=== PATIENT | female | born 1930 | race Caucasian/White ===

== ENCOUNTER 2017-12-21 11:38 | Inpatient (IN) | payer MEDICARE, BC ==
[~2017-12-21] VITALS: Ht 157.5 cm; Wt 68.0 kg
--- NOTE | 2017-12-21 11:47 | NUR ---
BIB paramedics IV access G18 to LAC. patent. pt. placed on 2 liters nasal canula saturation on RA 94%.. AAOX4.
[2017-12-21] MEDS ORDERED: IPRATROPIUM BROMIDE 0.5 MG/2.5 ML NEBU NEB ONE ×2 (12:00→13:45)
[2017-12-21] MEDS ORDERED: methylPREDNISolone SOD SUCC 125 MG/2 ML VIAL IV ONE (12:00)
[2017-12-21] MEDS ORDERED: ALBUTEROL SULFATE 2.5 MG/3 ML NEBU NEB ONE ×2 (12:00→13:45)
--- NOTE | 2017-12-21 12:00 | NUR ---
Dr. Cardenas at bedside to see and examine patient.
[2017-12-21] MEDS ORDERED: IPRATROPIUM BROMIDE 0.5 MG/2.5 ML NEBU ONE ×2 (12:08→13:43)
[2017-12-21] MEDS ORDERED: ALBUTEROL SULFATE 2.5 MG/ 0.5 ML NEBU ONE (12:08)
[2017-12-21] MEDS ORDERED: methylPREDNISolone SOD SUCC 125 MG/2 ML VIAL ONE (12:08)
[2017-12-21 12:19] LABS: BASOPHILS # (AUTO) 0.1 K/uL (0.0-8.0); BASOPHILS % (AUTO) 0.5 % (0.0-2.0); EOSINOPHILS # (AUTO) 0.7 K/uL (0.0-0.7); EOSINOPHILS % (AUTO) 5.2 % (0.0-7.0); HEMATOCRIT 43.1 % (31.2-41.9); HEMOGLOBIN 14.5 g/dL (10.9-14.3); LYMPHOCYTES % (AUTO) 14.4 % (20.5-51.5); MEAN CORPUSCULAR HEMOGLOBIN 30.3 uug (24.7-32.8); MEAN CORPUSCULAR HGB CONC 34 g/dL (32.3-35.6); MEAN CORPUSCULAR VOLUME 89.8 fL (75.5-95.3); MONOCYTES # (AUTO) 0.9 K/uL (2.0-10.0); MONOCYTES % (AUTO) 6.8 % (0.0-11.0); NEUTROPHILS # (AUTO) 10.1 K/uL (1.8-8.9); NEUTROPHILS % (AUTO) 73.1 % (38.5-71.5); PLATELET COUNT (AUTO) 262 K/uL (179-408); WHITE BLOOD COUNT (AUTO) 13.9 K/uL (3.8-11.8)
[2017-12-21] MEDS ORDERED: SINGULAIR PO (12:30)
[2017-12-21] MEDS ORDERED: BREO INHALER (12:30)
[2017-12-21] MEDS ORDERED: LEVO100T PO (12:30)
[2017-12-21] MEDS ORDERED: VALS320T2 PO (12:30)
[2017-12-21] MEDS ORDERED: ASPI81TA31 PO (12:30)
[2017-12-21] MEDS ORDERED: CHOL100045 PO (12:30)
[2017-12-21] MEDS ORDERED: ALBU8HFA4 (12:30)
[2017-12-21] MEDS ORDERED: GABA400C PO (12:30)
[2017-12-21] MEDS ORDERED: MEMA14CA PO (12:30)
[2017-12-21] MEDS ORDERED: CYAN10009 PO (12:30)
[2017-12-21] MEDS ORDERED: CALC600T12 PO (12:30)
[2017-12-21] MEDS ORDERED: B2/V1TAB PO (12:30)
[2017-12-21] MEDS ORDERED: INSU300I SQ (12:30)
[2017-12-21] MEDS ORDERED: SIMV10TA2 PO (12:30)
[2017-12-21] MEDS ORDERED: TRAM-351 PO (12:30)
[2017-12-21] MEDS ORDERED: FURO-152 PO (12:30)
[2017-12-21] MEDS ORDERED: INSU12CA IH (12:30)
[2017-12-21] MEDS ORDERED: POTA20TA10 PO (12:30)
[2017-12-21] MEDS ORDERED: AMLO10TA4 PO (12:30)
[2017-12-21 12:32] LABS: CARBON DIOXIDE 27 mmol/L (21-32); CHLORIDE 104 mmol/L (98-107); CREATININE 1.4 mg/dL (0.6-1.3); GLUCOSE 59 mg/dL (74-106); POTASSIUM 3.2 mmol/L (3.5-5.1); UREA NITROGEN, BLOOD 28 mg/dL (7-18)
[2017-12-21 12:49] LABS: ALANINE AMINOTRANSFERASE 23 U/L (14-59); ALKALINE PHOSPHATASE 88 U/L (50-136); ASPARTATE AMINOTRANSFERASE 22 U/L (15-37); BILIRUBIN,DIRECT 0.1 mg/dL (0.0-0.2); BILIRUBIN,TOTAL 0.2 mg/dL (0.2-1.0); TOTAL PROTEIN, SERUM 7.8 g/dL (6.4-8.2)
--- NOTE | 2017-12-21 13:12 | NUR ---
A call to [facility] as requested by Md. Davis.
--- NOTE | 2017-12-21 13:22 | NUR ---
Call for 2nd floor for a bed room 209 assigned report to give to Debbi Capone.
--- NOTE | 2017-12-21 13:23 | NUR ---
hr, of 77, 95% on 2L NC, sbp 141/60. Family at bedside.
--- NOTE | 2017-12-21 13:37 | NUR ---
A call for report. Addendum: 12/21/17 at 1338 by ROBERTO Denisse ellington will call back when available.
[2017-12-21] MEDS ORDERED: ALBUTEROL SULFATE 2.5 MG/3 ML NEBU ONE (13:43)
[2017-12-21] MEDS ORDERED: IPRATROPIUM BROMIDE 0.5 MG/2.5 ML NEBU NEB PRN (13:45)
[2017-12-21] MEDS ORDERED: ONDANSETRON 4 MG/2 ML VIAL IV PRN (13:45)
[2017-12-21] MEDS ORDERED: POTASSIUM CHLORIDE 20 MEQ TAB.PRT.SR PO ONE (13:45)
[2017-12-21] MEDS ORDERED: ALBUTEROL SULFATE 2.5 MG/3 ML NEBU NEB PRN (13:45)
[2017-12-21] MEDS ORDERED: IV NS 1000 ML 1,000 ML IV PRN (13:45)
[2017-12-21] MEDS ORDERED: POTASSIUM CHLORIDE 20 MEQ TAB.PRT.SR ONE (13:49)
--- NOTE | 2017-12-21 13:51 | NUR ---
Breathing tx in progress. pt. partially ate lunch.
--- NOTE | 2017-12-21 14:02 | NUR ---
Pt. still in room 1B been assessed by Asher Carey.
--- NOTE | 2017-12-21 14:10 | NUR ---
PT ARRIVED ON THE UNIT VIA GURNEY. PT WALKED FROM GURNEY TO BED, STEADY GATE, NO SIGNS OF DISTRESS. AOX4, COOPERATIVE, AND IN NO RESPIRATORY DISTRESS. PT IV IS PATENT AND INTACT. PT PLACED ON 2L NC SAT 94-96%. CONTINUE TO MONITOR PT.
[2017-12-21 14:25] VITALS: BP 176/71
[2017-12-21] MEDS: methylPREDNISolone SOD SUCC 40 MG/ML VIAL IV SCH ×2 (14:51→21:06)
[2017-12-21] MEDS ORDERED: DEXTROSE 50% 50 ML DISP.SYRIN IV PRN (15:00)
[2017-12-21 15:08] VITALS: BP 150/73
[2017-12-21] MEDS ORDERED: CLONIDINE HCL 0.1 MG TABLET PO PRN (16:00)
[2017-12-21] MEDS: LEVOFLOXACIN 250MG /D5W 250 MG in PREMIXED 1 EACH IV SCH (16:05)
[2017-12-21] MEDS: IPRATROPIUM BROMIDE 0.5 MG/2.5 ML NEBU NEB SCH ×3 (16:20→23:26)
[2017-12-21] MEDS: ALBUTEROL SULFATE 2.5 MG/3 ML NEBU NEB SCH ×3 (16:20→23:26)
[2017-12-21] MEDS ORDERED: [UNRECOGNIZED DRUG - OTHER] PO SCH (17:00)
[2017-12-21] MEDS ORDERED: BLOOD SUGAR DIAGNOSTIC 1 EACH STRIP VI SCH (17:00)
[2017-12-21] MEDS: BETA CAROTENE/VIT C & E/MIN TABLET PO SCH (17:04)
[2017-12-21] MEDS: POTASSIUM CHLORIDE 20 MEQ TAB.PRT.SR PO SCH (17:05)
[2017-12-21] MEDS: BLOOD SUGAR DIAGNOSTIC 1 EACH STRIP VI SCH ×2 (17:05→20:53)
[2017-12-21] MEDS: INSULIN REGULAR, HUMAN 300 UNIT/3 ML VIAL SQ PRN ×2 (17:07→21:01)
[2017-12-21] MEDS: MONTELUKAST SODIUM 10 MG TABLET PO SCH (17:56)
[2017-12-21] MEDS: AMLODIPINE 10 MG TABLET PO SCH (17:56)
--- NOTE | 2017-12-21 18:24 | NUR ---
PT OBSERVED ON THE PHONE, AWAKE, SMILING, NO SIGNS OF DISTRESS, AOX4, 2 L NC SAT 96%. PT TAKES MEDICATIONS, CAN AMBULATE TO RESTROOM WITH OUT HELP. CONTINUE TO MONITOR PT.
--- NOTE | 2017-12-21 20:00 | NUR ---
Received patient laying comfortably in bed. No acute distress noted. Denies any pain or SOB. A/O x 3 but forgetful. Patient is on O2 2L NC. TELE SR. IV on the left AC patent and intact. Re enforced with paper tape. Safety initiated. Call light within reach. Bed in low and locked position. Room is kept clutter free. Will closely monitor.
[2017-12-21 20:45] VITALS: BP 154/69
[2017-12-21] MEDS: MEMANTINE HCL 5 MG TABLET PO SCH (20:48)
[2017-12-21] MEDS: SIMVASTATIN 10 MG TABLET PO SCH (20:48)
[2017-12-21] MEDS: GABAPENTIN 400 MG CAPSULE PO SCH (20:48)
[2017-12-21] MEDS: ENOXAPARIN SODIUM 30 MG/0.3 ML DISP.SYRIN SUBCUT SCH (20:52)
[2017-12-21] MEDS: ACETAMINOPHEN 325 MG TABLET PO PRN (23:43)
[2017-12-22 00:49] VITALS: BP 149/70
[2017-12-22] MEDS: IPRATROPIUM BROMIDE 0.5 MG/2.5 ML NEBU NEB SCH ×6 (02:33→22:35)
[2017-12-22] MEDS: ALBUTEROL SULFATE 2.5 MG/3 ML NEBU NEB SCH ×6 (02:34→22:35)
[2017-12-22 04:29] VITALS: BP 131/52
--- NOTE | 2017-12-22 05:07 | NUR ---
Patient slept intermittently t/o shift. No acute distress noted. TELE SR. Remains on O2 2L NC. Breathing tx t/o shift. Safety and comfort measures maintained t/o shift. Good urine output. Vital signs stable. All meds given as ordered. All needs met.
[2017-12-22] MEDS: LEVOTHYROXINE SODIUM 100 MCG TABLET PO SCH (06:03)
[2017-12-22] MEDS: methylPREDNISolone SOD SUCC 40 MG/ML VIAL IV SCH ×2 (06:03→20:02)
[2017-12-22 06:22] LABS: HEMATOCRIT 37.2 % (31.2-41.9); HEMOGLOBIN 12.3 g/dL (10.9-14.3); LYMPHOCYTES # (AUTO) 1.1 K/uL (20.0-40.0); LYMPHOCYTES % (AUTO) 5.7 % (20.5-51.5); MEAN CORPUSCULAR HEMOGLOBIN 30.1 uug (24.7-32.8); MEAN CORPUSCULAR HGB CONC 33 g/dL (32.3-35.6); MONOCYTES # (AUTO) 0.2 K/uL (2.0-10.0); MONOCYTES % (AUTO) 1.2 % (0.0-11.0); NEUTROPHILS # (AUTO) 18.4 K/uL (1.8-8.9); NEUTROPHILS % (AUTO) 93.1 % (38.5-71.5); PLATELET COUNT (AUTO) 243 K/uL (179-408); RED BLOOD CELL COUNT(AUTO) 4.08 MIL/uL (3.63-4.92); WHITE BLOOD COUNT (AUTO) 19.8 K/uL (3.8-11.8)
[2017-12-22 07:08] LABS: ALANINE AMINOTRANSFERASE 19 U/L (14-59); ALKALINE PHOSPHATASE 79 U/L (50-136); ASPARTATE AMINOTRANSFERASE 19 U/L (15-37); BILIRUBIN,TOTAL 0.1 mg/dL (0.2-1.0); CARBON DIOXIDE 23 mmol/L (21-32); CHLORIDE 101 mmol/L (98-107); CHOLESTEROL 160 mg/dL (<200); CREATININE 2.1 mg/dL (0.6-1.3); HDL CHOLESTEROL 61 mg/dL (40-60); MAGNESIUM 2.2 mg/dL (1.8-2.4); PHOSPHOROUS 2.9 mg/dL (2.5-4.9); POTASSIUM 5.5 mmol/L (3.5-5.1); TOTAL PROTEIN, SERUM 6.8 g/dL (6.4-8.2); TRIGLYCERIDES 57 MG/DL (30-150); UREA NITROGEN, BLOOD 47 mg/dL (7-18)
[2017-12-22 07:12] LABS: GLUCOSE 364 mg/dL (74-106)
[2017-12-22 07:23] LABS: THYROID STIMULATING HORMONE 1.066 mIU/mL (0.358-3.740)
--- NOTE | 2017-12-22 07:30 | NUR ---
AWAKE ALERT AND ORIENTED X3 NO SS OF PAIN OR ACUTE DISTRESS. O2 2L SATURATING 96%. CONTINUE BLOOD SUGAR MONITORING. SR ON MONITOR
[2017-12-22] MEDS: BLOOD SUGAR DIAGNOSTIC 1 EACH STRIP VI SCH ×4 (07:50→23:12)
[2017-12-22] MEDS: INSULIN REGULAR, HUMAN 300 UNIT/3 ML VIAL SQ PRN ×4 (07:57→23:13)
[2017-12-22] MEDS: ASPIRIN 81 MG TAB.CHEW PO SCH (08:31)
[2017-12-22] MEDS: CALCIUM CARBONATE 600 MG TABLET PO SCH (08:31)
[2017-12-22] MEDS: CYANOCOBALAMIN 1,000 MCG TABLET PO SCH (08:31)
[2017-12-22] MEDS: MEMANTINE HCL 5 MG TABLET PO SCH ×2 (08:31→20:02)
[2017-12-22] MEDS: BETA CAROTENE/VIT C & E/MIN TABLET PO SCH ×2 (08:31→15:36)
[2017-12-22] MEDS: CHOLECALCIFEROL 1,000 UNIT TABLET PO SCH (08:31)
[2017-12-22] MEDS: LEVOFLOXACIN 250MG /D5W 250 MG in PREMIXED 1 EACH IV SCH (08:31)
[2017-12-22] MEDS: POTASSIUM CHLORIDE 20 MEQ TAB.PRT.SR PO SCH (08:32)
--- NOTE | 2017-12-22 08:33 | NUR ---
k-dur not given k level 5.5
[2017-12-22] MEDS ORDERED: VALSARTAN 160 MG TABLET PO SCH (09:00)
[2017-12-22] MEDS ORDERED: Medication Not On Formulary EA (Memantine HCl (Namenda Xr) 14 MG) PO SCH (09:00)
[2017-12-22] MEDS ORDERED: Medication Not On Formulary EA (Valsartan (Diovan) 320 MG) PO SCH (09:00)
[2017-12-22] MEDS ORDERED: FUROSEMIDE 20 MG TABLET PO SCH (09:00)
[2017-12-22 11:06] VITALS: BP 150/60
[2017-12-22] MEDS ORDERED: INSULIN GLARGINE,HUM 300 UNITS/3 ML CARTRIDGE SQ SCH (11:30)
[2017-12-22 11:34] LABS: *BILIRUBIN,URIN NEGATIVE (NEGATIVE); *BLOOD, URINE Trace-lysed (NEGATIVE); *COLOR,URINE YELLOW (YELLOW); *KETONES,URINE NEGATIVE (NEGATIVE); *PROTEIN,URINE 2+ (NEGATIVE); *UROBILINOGEN,URINE 0.2 E.U./dl (NORMAL); LEUKOCYTE ESTERASE ,URINE 1+ (NEGATIVE); NITRITE, URINE POSITIVE (NEGATIVE); PH,URINE 5.5 (5.0-8.0)
--- NOTE | 2017-12-22 11:37 | NUR ---
pt bs 555 via fingerstick. JESSICA DURAN NOTIFIED WITH ORDERS
[2017-12-22 12:24] LABS: UGLUCOSE 2+ (NEGATIVE)
[2017-12-22 12:26] LABS: *CLARITY,URINE CLOUDY (CLEAR); BACTERIA,URINE MANY /HPF (NONE SEEN); SQUAMOUS EPITHELIAL CELL,UR FEW /HPF (NONE SEEN); WBC,URINE TNTC /HPF (0-3)
[2017-12-22] MEDS ORDERED: DEXTROSE 50% 50 ML DISP.SYRIN IV PRN ×2 (12:30→17:00)
[2017-12-22] MEDS ORDERED: INSULIN REGULAR, HUMAN 300 UNIT/3 ML VIAL SQ PRN (12:30)
[2017-12-22] MEDS ORDERED: INSULIN REGULAR, HUMAN 300 UNIT/3 ML VIAL SQ ONE (15:15)
[2017-12-22 15:34] VITALS: BP 156/63
[2017-12-22] MEDS: AMLODIPINE 10 MG TABLET PO SCH (15:36)
[2017-12-22] MEDS: MONTELUKAST SODIUM 10 MG TABLET PO SCH (15:37)
[2017-12-22] MEDS ORDERED: BLOOD SUGAR DIAGNOSTIC 1 EACH STRIP VI SCH (16:00)
--- NOTE | 2017-12-22 16:01 | NUR ---
BS 538 HOSPITALIST NOTIFIED WITH ORDER FOR 15 UNITS REGULAR INSULIN SC. PATIENT REMAINS ASYMPTOMATIC, [SURESH DISCHARGE CANCELLED FOR AM DEPENDING BS RESULTS
[2017-12-22] MEDS ORDERED: INSULIN REGULAR, HUMAN 300 UNIT/3 ML VIAL SQ SCH (16:30)
--- NOTE | 2017-12-22 19:56 | NUR ---
Pt had elevated Blood sugar 350, insulin was given per siding scale
[2017-12-22] MEDS: SIMVASTATIN 10 MG TABLET PO SCH (20:02)
[2017-12-22] MEDS: GABAPENTIN 400 MG CAPSULE PO SCH (20:02)
[2017-12-22] MEDS: ENOXAPARIN SODIUM 30 MG/0.3 ML DISP.SYRIN SUBCUT SCH (20:03)
[2017-12-22 20:14] VITALS: BP 149/62
[2017-12-22] MEDS ORDERED: TEMAZEPAM 7.5 MG CAPSULE PO PRN (21:30)
--- NOTE | 2017-12-22 23:10 | NUR ---
pt has elevated Blood sugar 249, insulin was given per siding scale
[2017-12-23] MEDS: ALBUTEROL SULFATE 2.5 MG/3 ML NEBU NEB SCH ×6 (03:30→22:37)
[2017-12-23] MEDS: IPRATROPIUM BROMIDE 0.5 MG/2.5 ML NEBU NEB SCH ×6 (03:30→22:37)
[2017-12-23] MEDS: BLOOD SUGAR DIAGNOSTIC 1 EACH STRIP VI SCH ×3 (05:15→17:10)
[2017-12-23] MEDS: INSULIN REGULAR, HUMAN 300 UNIT/3 ML VIAL SQ PRN ×3 (05:16→17:12)
--- NOTE | 2017-12-23 05:38 | NUR ---
PT SLEPT WELL THROUGH THE NIGHT AND WAS EASILY AWOKEN, PT DENIED HAVING ANY PAIN OR DIFFICULTY BREATHING. PT HAD ELEVATED BLOOD SUGAR DURING THE NIGHT BUT IN THE MORNING PT'S BLOOD SUGAR WAS 134, AT THE TIME PT WAS OFFERED INSULIN BUT REFUSED. ALL NEEDS MET, SAFETY MEASURES ARE IN PLACE, CALL LIGHT WITHIN REACH, BED ALARM IS ON.
[2017-12-23 05:57] VITALS: BP 146/59
[2017-12-23 06:47] LABS: BASOPHILS % (AUTO) 0.1 % (0.0-2.0); HEMOGLOBIN 13.1 g/dL (10.9-14.3); NEUTROPHILS # (AUTO) 28.7 K/uL (1.8-8.9)
[2017-12-23] MEDS: LEVOTHYROXINE SODIUM 100 MCG TABLET PO SCH (06:48)
[2017-12-23 06:49] LABS: HEMATOCRIT 39.7 % (31.2-41.9); LYMPHOCYTES # (AUTO) 1.3 K/uL (20.0-40.0); LYMPHOCYTES % (AUTO) 4.3 % (20.5-51.5); MEAN CORPUSCULAR HEMOGLOBIN 29.5 uug (24.7-32.8); MEAN CORPUSCULAR HGB CONC 33 g/dL (32.3-35.6); MEAN CORPUSCULAR VOLUME 89.4 fL (75.5-95.3); MONOCYTES % (AUTO) 3.4 % (0.0-11.0); NEUTROPHILS % (AUTO) 92.2 % (38.5-71.5); PLATELET COUNT (AUTO) 276 K/uL (179-408); RED BLOOD CELL COUNT(AUTO) 4.45 MIL/uL (3.63-4.92)
[2017-12-23 06:54] LABS: ALANINE AMINOTRANSFERASE 20 U/L (14-59); ALKALINE PHOSPHATASE 85 U/L (50-136); ASPARTATE AMINOTRANSFERASE 19 U/L (15-37); BILIRUBIN,TOTAL 0.1 mg/dL (0.2-1.0); CARBON DIOXIDE 25 mmol/L (21-32); CHLORIDE 107 mmol/L (98-107); CREATININE 1.7 mg/dL (0.6-1.3); GLUCOSE 144 mg/dL (74-106); MAGNESIUM 2.5 mg/dL (1.8-2.4); TOTAL PROTEIN, SERUM 7.3 g/dL (6.4-8.2); UREA NITROGEN, BLOOD 51 mg/dL (7-18)
[2017-12-23 07:01] LABS: WHITE BLOOD COUNT (AUTO) 31.2 K/uL (3.8-11.8)
--- NOTE | 2017-12-23 08:00 | NUR ---
AWAKE ALERT AND ORIENTED X3 NO SS OF DISTRESS. SEEN BY DR RACHEL, FISHER POT WITH ORDER TO SYART ON AZACTAM FOR LEUKOCYTOSIS
[2017-12-23] MEDS: methylPREDNISolone SOD SUCC 40 MG/ML VIAL IV SCH (08:08)
[2017-12-23] MEDS: LEVOFLOXACIN 250MG /D5W 250 MG in PREMIXED 1 EACH IV SCH (08:08)
[2017-12-23] MEDS: CHOLECALCIFEROL 1,000 UNIT TABLET PO SCH (08:09)
[2017-12-23] MEDS: MEMANTINE HCL 5 MG TABLET PO SCH ×2 (08:09→20:10)
[2017-12-23] MEDS: BETA CAROTENE/VIT C & E/MIN TABLET PO SCH ×2 (08:09→17:13)
[2017-12-23] MEDS: CALCIUM CARBONATE 600 MG TABLET PO SCH (08:09)
[2017-12-23] MEDS: ASPIRIN 81 MG TAB.CHEW PO SCH (08:09)
[2017-12-23] MEDS: CYANOCOBALAMIN 1,000 MCG TABLET PO SCH (08:09)
[2017-12-23] MEDS: INSULIN GLARGINE,HUM 300 UNITS/3 ML CARTRIDGE SQ SCH (08:11)
[2017-12-23 10:08] LABS: BAND % (MANUAL) 2 % (0-10); LYMPHOCYTES % (MANUAL) 6 % (20-40); MONOCYTES % (MANUAL) 4 % (2-10); NEUTROPHILS % (MANUAL) 88 % (42-75)
[2017-12-23] MEDS ORDERED: DEXTROSE 50% 50 ML DISP.SYRIN IV PRN ×2 (10:30→16:45)
[2017-12-23] MEDS ORDERED: INSULIN REGULAR, HUMAN 300 UNIT/3 ML VIAL SQ PRN (10:30)
[2017-12-23] MEDS: AZTREONAM 1 G in IV NORMAL SALINE 50 ML IV SCH ×2 (10:59→18:22)
[2017-12-23 11:08] VITALS: BP 146/58
[2017-12-23] MEDS ORDERED: BLOOD SUGAR DIAGNOSTIC 1 EACH STRIP VI SCH (11:30)
--- NOTE | 2017-12-23 12:30 | NUR ---
SEEN BY JOHNNIE SPOKE WITH PATIENT REGARDING PLAN/DC PLANNING
[2017-12-23 15:38] VITALS: BP 149/69
--- NOTE | 2017-12-23 15:52 | NUR ---
VQ SCAN IN PROGRESS AWAITING RESULTS
[2017-12-23] MEDS ORDERED: INSULIN REGULAR, HUMAN 300 UNITS/3 ML VIAL SQ PRN (16:45)
[2017-12-23] MEDS: MONTELUKAST SODIUM 10 MG TABLET PO SCH (17:13)
[2017-12-23] MEDS: AMLODIPINE 10 MG TABLET PO SCH (17:14)
[2017-12-23 19:00] VITALS: BP 158/85
--- NOTE | 2017-12-23 20:00 | NUR ---
Received patient laying comfortably in bed. No acute distress noted. Denies any pain or SOB. A/O x 3 but forgetful. Patient is on O2 2L NC. IV on the left hand patent and intact. Re enforced with paper tape. Safety initiated. Call light within reach. Bed in low and locked position. Room is kept clutter free. Will closely monitor
[2017-12-23] MEDS: SIMVASTATIN 10 MG TABLET PO SCH (20:10)
[2017-12-23] MEDS: GABAPENTIN 400 MG CAPSULE PO SCH (20:10)
[2017-12-23] MEDS: ENOXAPARIN SODIUM 30 MG/0.3 ML DISP.SYRIN SUBCUT SCH (20:13)
[2017-12-24] MEDS: ACETAMINOPHEN 325 MG TABLET PO PRN (00:32)
[2017-12-24] MEDS: IPRATROPIUM BROMIDE 0.5 MG/2.5 ML NEBU NEB SCH ×3 (02:36→11:23)
[2017-12-24] MEDS: ALBUTEROL SULFATE 2.5 MG/3 ML NEBU NEB SCH ×3 (02:36→11:22)
[2017-12-24] MEDS: AZTREONAM 1 G in IV NORMAL SALINE 50 ML IV SCH ×2 (03:00→10:45)
--- NOTE | 2017-12-24 03:29 | NUR ---
Patient anxious, wanting to sleep. Ativan 0.5 mg given. Will continue to monitor.
[2017-12-24] MEDS ORDERED: LORAZEPAM 2 MG/1 ML VIAL IV PRN (03:30)
[2017-12-24 04:00] VITALS: BP 152/71
--- NOTE | 2017-12-24 05:04 | NUR ---
Patient slept the rest of the shift. She received her scheduled breathing tx. Remains at O2 2L NC. Vital signs remains stable No temperature. Denied any pain or sob. IV on the left hand patent and intact. Great urine output. Safety and comfort measures maintained t/o shift. All meds given as ordered. All needs met.
[2017-12-24 05:50] LABS: BASOPHILS % (AUTO) 0.1 % (0.0-2.0); EOSINOPHILS % (AUTO) 0.1 % (0.0-7.0); HEMATOCRIT 38.2 % (31.2-41.9); HEMOGLOBIN 12.7 g/dL (10.9-14.3); LYMPHOCYTES # (AUTO) 2.5 K/uL (20.0-40.0); LYMPHOCYTES % (AUTO) 12.1 % (20.5-51.5); MEAN CORPUSCULAR HEMOGLOBIN 30.1 uug (24.7-32.8); MEAN CORPUSCULAR HGB CONC 33 g/dL (32.3-35.6); MEAN CORPUSCULAR VOLUME 90.6 fL (75.5-95.3); MONOCYTES # (AUTO) 1.4 K/uL (2.0-10.0); MONOCYTES % (AUTO) 6.9 % (0.0-11.0); NEUTROPHILS # (AUTO) 16.4 K/uL (1.8-8.9); NEUTROPHILS % (AUTO) 80.8 % (38.5-71.5); PLATELET COUNT (AUTO) 238 K/uL (179-408); RED BLOOD CELL COUNT(AUTO) 4.22 MIL/uL (3.63-4.92); WHITE BLOOD COUNT (AUTO) 20.2 K/uL (3.8-11.8)
[2017-12-24 06:08] LABS: ALANINE AMINOTRANSFERASE 23 U/L (14-59); ALKALINE PHOSPHATASE 73 U/L (50-136); ASPARTATE AMINOTRANSFERASE 17 U/L (15-37); BILIRUBIN,TOTAL 0.1 mg/dL (0.2-1.0); CARBON DIOXIDE 28 mmol/L (21-32); CHLORIDE 109 mmol/L (98-107); CREATININE 1.6 mg/dL (0.6-1.3); GLUCOSE 142 mg/dL (74-106); MAGNESIUM 2.2 mg/dL (1.8-2.4); PHOSPHOROUS 3.3 mg/dL (2.5-4.9); POTASSIUM 3.5 mmol/L (3.5-5.1); TOTAL PROTEIN, SERUM 6.9 g/dL (6.4-8.2); UREA NITROGEN, BLOOD 45 mg/dL (7-18)
[2017-12-24] MEDS: LEVOTHYROXINE SODIUM 100 MCG TABLET PO SCH (06:31)
[2017-12-24] MEDS: BLOOD SUGAR DIAGNOSTIC 1 EACH STRIP VI SCH ×2 (06:32→11:39)
--- NOTE | 2017-12-24 07:43 | NUR ---
Sleepy but easily aroused, responsive. O2 at 2L/NC
[2017-12-24] MEDS ORDERED: methylPREDNISolone SOD SUCC 40 MG/ML VIAL IV SCH (09:00)
[2017-12-24] MEDS: LEVOFLOXACIN 250MG /D5W 250 MG in PREMIXED 1 EACH IV SCH (09:28)
[2017-12-24] MEDS: ASPIRIN 81 MG TAB.CHEW PO SCH (09:29)
[2017-12-24] MEDS: CHOLECALCIFEROL 1,000 UNIT TABLET PO SCH (09:30)
[2017-12-24] MEDS: CYANOCOBALAMIN 1,000 MCG TABLET PO SCH (09:30)
[2017-12-24] MEDS: CALCIUM CARBONATE 600 MG TABLET PO SCH (09:30)
[2017-12-24] MEDS: BETA CAROTENE/VIT C & E/MIN TABLET PO SCH (09:30)
[2017-12-24] MEDS: MEMANTINE HCL 5 MG TABLET PO SCH (09:30)
[2017-12-24] MEDS: INSULIN GLARGINE,HUM 300 UNITS/3 ML CARTRIDGE SQ SCH (09:33)
[2017-12-24] MEDS: INSULIN REGULAR, HUMAN 300 UNIT/3 ML VIAL SQ PRN ×2 (09:34→11:42)
--- NOTE | 2017-12-24 11:10 | NUR ---
ASSUMED CARE OF THIS PATIENT AWAKE ALERT ORIENTED BUT FORGETFUL DENIES PAIN OR DISCOMFORTS AT THIS TIME ON ROOM AIR WITH NO SHORTNESS OF BREATH AT THIS TIME NO S/S OF HYPO/HYPERGLYCEMIC REACTIONS AT THIS TIME.REMAIN ON ATB ORDERED WITH NO ADVERSE OR ALLERGIC REACTIONS AT THIS TIME.WILL CONTINUE TO OBSERVE
[2017-12-24 11:28] VITALS: BP 148/66
[2017-12-24] MEDS ORDERED: ACETYLCYSTEINE 10% 4ML VIAL NEB SCH (11:42)
--- NOTE | 2017-12-24 12:40 | NUR ---
DISCHARGE ORDER NOTED PATIENTS DAUGHTER IS AT THE BEDSIDE AND AWARE AND STATED WILL WAIT AND TAKE PATIENT HOME TODAY.
[2017-12-24] MEDS ORDERED: PRED20TA PO (12:52)
[2017-12-24] MEDS ORDERED: PRED-170 PO ×2 (12:52→12:56)
[2017-12-24] MEDS ORDERED: LEVO250T2 PO (12:52)
[2017-12-24] MEDS ORDERED: PRED10TA PO (12:52)
[2017-12-24] MEDS ORDERED: LACT1CAP57 PO ×2 (12:52→12:53)
[2017-12-24] MEDS ORDERED: ALBU8.5H8 INH (13:05)
--- NOTE | 2017-12-24 13:42 | NUR ---
Unaware of new Mucomyst treatment ordered for 1142. No printed order received by Respiratory Department. No notification of new intervention. Will endorse to warehouse worker 2nd shift to begin Mucomyst treatment as scheduled.
--- NOTE | 2017-12-24 14:35 | NUR ---
PATIENT DISCHARGED PICKED UP BY HER DAUGHTER KARISHMA IN SATISFACTORY CONDITION WITH DISCHARGE INSTRUCTIONS AND PRESCRIPTIONS AND PATIENT INSTRUCTED TO FOLLOW UP WITH DR WHITNEY ON SUNDAY SCHEDULED AND SHE EXPRESSED UNDERSTANDING.
[2017-12-24] MEDS ORDERED: LACTOBACILLUS RHAMNOSUS GG 1 EACH CAPSULE PO SCH (21:00)
[2017-12-25] MEDS ORDERED: predniSONE 20 MG TABLET PO SCH (08:00)
[2017-12-25] MEDS ORDERED: LEVOFLOXACIN 250 MG TABLET PO SCH (09:00)
[2017-12-26] MEDS ORDERED: predniSONE 10 MG TABLET PO SCH (09:00)
[2017-12-27] MEDS ORDERED: predniSONE 5 MG TABLET PO SCH (09:00)
== END 2017-12-24 14:35 | disposition home or self-care (01) | DRG 190 ==
LOC: ER 11:42 → TELE 13:39 → MED 12-22 16:54
PROVIDERS: ADMIT Internal Medicine; ATTEND Internal Medicine
DX: J47.1 Bronchiectasis with (acute) exacerbation (principal); N17.0 Acute kidney failure with tubular necrosis; E43 Unspecified severe protein-calorie malnutrition; I13.0 Hypertensive heart and chronic kidney disease with heart failure and stage 1 through stage 4 chronic kidney disease, or unspecified chronic kidney disease; I50.32 Chronic diastolic (congestive) heart failure; I31.3 Pericardial effusion (noninflammatory); J98.11 Atelectasis; N39.0 Urinary tract infection, site not specified; E87.1 Hypo-osmolality and hyponatremia; J47.0 Bronchiectasis with acute lower respiratory infection; J20.9 Acute bronchitis, unspecified; E87.5 Hyperkalemia; E78.5 Hyperlipidemia, unspecified; Z77.22 Contact with and (suspected) exposure to environmental tobacco smoke (acute) (chronic); J84.10 Pulmonary fibrosis, unspecified; E11.22 Type 2 diabetes mellitus with diabetic chronic kidney disease; E11.65 Type 2 diabetes mellitus with hyperglycemia; N18.9 Chronic kidney disease, unspecified; Z79.4 Long term (current) use of insulin; E83.41 Hypermagnesemia; F03.90 Unspecified dementia, unspecified severity, without behavioral disturbance, psychotic disturbance, mood disturbance, and anxiety; E11.40 Type 2 diabetes mellitus with diabetic neuropathy, unspecified; D72.829 Elevated white blood cell count, unspecified; T38.0X5A Adverse effect of glucocorticoids and synthetic analogues, initial encounter; Y92.009 Unspecified place in unspecified non-institutional (private) residence as the place of occurrence of the external cause; E03.9 Hypothyroidism, unspecified; Z88.0 Allergy status to penicillin; Z88.2 Allergy status to sulfonamides; E87.6 Hypokalemia
CPT/HCPCS: 36415; 70030-TC; 71045; 71270; 78579; 82785; 83735; 84100; 84132; 84443; 85025; 87086; 93005; 93307; 94640; 94664; A4663; A9540; A9567; J1650; J1815; J1956; J2060; J2920; J2930; J3490; J3590

== ENCOUNTER 2020-02-20 22:32 | Inpatient (IN) | payer MEDICARE, BC ==
[~2020-02-20] VITALS: Ht 162.6 cm; Wt 73.6 kg
[~2020-02-20 22:32] MED LIST: ALBU8.5H8 INH; ALBU8HFA4; AMLO10TA4 PO; ASPI81TA31 PO; B2/V1TAB PO; BREO INHALER; CALC600T35 PO; CHOL100045 PO; CYAN10009 PO; FURO-152 PO; GABA400C PO; INSU12CA IH; INSU300I SQ; LACT1CAP57 PO; LEVO100T PO; LEVO250T2 PO; MEMA14CA PO; PRED-170 PO; PRED10TA PO; PRED20TA PO; SIMV10TA2 PO; SINGULAIR PO
[2020-02-20] MEDS ORDERED: MORPHINE SULFATE 2 MG/1 ML DISP.SYRIN IV ONE (23:00)
[2020-02-20] MEDS ORDERED: ONDANSETRON 4 MG/2 ML VIAL IV ONE (23:00)
[2020-02-20] MEDS ORDERED: ONDANSETRON 4 MG/2 ML VIAL ONE (23:03)
[2020-02-20] MEDS ORDERED: MORPHINE SULFATE 2 MG/1 ML DISP.SYRIN ONE (23:03)
[2020-02-20 23:19] LABS: BASOPHILS # (AUTO) 0.1 K/uL (0.0-8.0); BASOPHILS % (AUTO) 0.8 % (0.0-2.0); EOSINOPHILS # (AUTO) 0.3 K/uL (0.0-0.7); EOSINOPHILS % (AUTO) 2.6 % (0.0-7.0); HEMATOCRIT 35.8 % (31.2-41.9); HEMOGLOBIN 11.8 g/dL (10.9-14.3); LYMPHOCYTES # (AUTO) 1.6 K/uL (20.0-40.0); LYMPHOCYTES % (AUTO) 12.5 % (20.5-51.5); MEAN CORPUSCULAR HEMOGLOBIN 29.8 uug (24.7-32.8); MEAN CORPUSCULAR HGB CONC 33 g/dL (32.3-35.6); MEAN CORPUSCULAR VOLUME 90.6 fL (75.5-95.3); MONOCYTES # (AUTO) 0.7 K/uL (2.0-10.0); MONOCYTES % (AUTO) 5.6 % (0.0-11.0); NEUTROPHILS # (AUTO) 10.3 K/uL (1.8-8.9); NEUTROPHILS % (AUTO) 78.5 % (38.5-71.5); PLATELET COUNT (AUTO) 315 K/uL (179-408); RED BLOOD CELL COUNT(AUTO) 3.96 MIL/uL (3.63-4.92); WHITE BLOOD COUNT (AUTO) 13.1 K/uL (3.8-11.8)
[2020-02-20] MEDS ORDERED: MORPHINE SULFATE 4 MG/1 ML DISP.SYRIN ONE (23:25)
[2020-02-20 23:27] LABS: CARBON DIOXIDE 25 mmol/L (21-32); CHLORIDE 102 mmol/L (98-107); CREATININE 1.8 mg/dL (0.6-1.3); GLUCOSE 248 mg/dL (74-106); POTASSIUM 4.5 mmol/L (3.5-5.1); UREA NITROGEN, BLOOD 37 mg/dL (7-18)
[2020-02-20] MEDS ORDERED: MORPHINE SULFATE 4 MG/1 ML DISP.SYRIN IV ONE (23:30)
[2020-02-20 23:33] LABS: ALANINE AMINOTRANSFERASE 23 U/L (14-59); ALKALINE PHOSPHATASE 95 U/L (50-136); ASPARTATE AMINOTRANSFERASE 32 U/L (15-37); BILIRUBIN,DIRECT < 0.1 mg/dL (0.0-0.2); BILIRUBIN,TOTAL 0.1 mg/dL (0.2-1.0); TOTAL PROTEIN, SERUM 8.2 g/dL (6.4-8.2)
[2020-02-21] MEDS ORDERED: FURO-151 PO (00:20)
[2020-02-21] MEDS ORDERED: OLME40TA12 PO (00:20)
[2020-02-21] MEDS ORDERED: TRAM50TA2 PO (00:20)
[2020-02-21] MEDS ORDERED: POTA20TA10 PO (00:20)
[2020-02-21] MEDS ORDERED: CIPR-263 PO (00:20)
--- NOTE | 2020-02-21 00:42 | NUR ---
Pt. admitted to Med/Surg, under care of Parmjit Quintero. Diagnosis: Left Hip Fracture. Belongs List completed Dr. Hodge spoke with Dr. Ocasio (ortho)
[2020-02-21] MEDS ORDERED: DEXTROSE 50% 50 ML DISP.SYRIN IV PRN (01:00)
[2020-02-21] MEDS ORDERED: ACETAMINOPHEN 650 MG SUPP.RECT RC PRN (01:00)
[2020-02-21] MEDS ORDERED: Z GUARD REMEDY PASTE 57 GM TUBE TOP PRN (01:00)
[2020-02-21] MEDS ORDERED: ALBUTEROL SULFATE 2.5 MG/3 ML NEBU NEB PRN (01:00)
[2020-02-21] MEDS ORDERED: ONDANSETRON 4 MG/2 ML VIAL IV PRN (01:00)
--- NOTE | 2020-02-21 01:15 | NUR ---
Bed Assignment: Room 330. Pending rapid covid test result prior to transfer to inpatient unit. Patient is resting comfortably in bed. Vitals stable. Will continue to monitor.
[2020-02-21] MEDS: MORPHINE SULFATE 2 MG/1 ML DISP.SYRIN IV PRN ×3 (01:48→21:40)
[2020-02-21] MEDS ORDERED: MORPHINE SULFATE 4 MG/1 ML DISP.SYRIN ONE (01:49)
--- NOTE | 2020-02-21 03:30 | NUR ---
Patient transferred to 3rd floor.
--- NOTE | 2020-02-21 03:42 | NUR ---
patient received from ER.
[2020-02-21] MEDS: IV D5 1/2 NS 1000 ML 1,000 ML IV PRN (03:53)
--- NOTE | 2020-02-21 04:00 | NUR ---
patient refused to have back of skin checked due to pain and limited mobility. skin intact on anterior of patient body. m
--- NOTE | 2020-02-21 04:58 | NUR ---
patient aaox2 and forgetful. no s/s of acute distress noted. v/s stable. on o2 2L sat at 93%. denies any pain at this time. safety precautions in place and call light within reach. will continue to monitor and assess.
--- NOTE | 2020-02-21 04:59 | NUR ---
urine sample sent to lab.
[2020-02-21 05:00] VITALS: BP 124/82
--- NOTE | 2020-02-21 05:02 | NUR ---
orders received to insert hernández catheter, Ingrid masterson np. will carry out.
[2020-02-21] MEDS: BLOOD SUGAR DIAGNOSTIC 1 EACH STRIP VI SCH ×4 (06:12→23:51)
[2020-02-21] MEDS: INSULIN REGULAR, HUMAN 300 UNIT/3 ML VIAL SQ PRN ×3 (06:17→17:49)
[2020-02-21 06:28] LABS: *BILIRUBIN,URIN NEGATIVE (NEGATIVE); *CLARITY,URINE SLIGHTLY CLOUDY (CLEAR); *COLOR,URINE YELLOW (YELLOW); *KETONES,URINE NEGATIVE (NEGATIVE); *UROBILINOGEN,URINE 0.2 E.U./dl (NORMAL); LEUKOCYTE ESTERASE ,URINE 1+ (NEGATIVE); NITRITE, URINE NEGATIVE (NEGATIVE); PH,URINE 5.5 (5.0-8.0); UGLUCOSE TRACE (NEGATIVE)
[2020-02-21 06:30] LABS: *BLOOD, URINE TRACE INTACT (NEGATIVE)
--- NOTE | 2020-02-21 06:43 | NUR ---
patient is resting comfortably. aaox2. morphine x1 administered for pain. Borden intact and patent. safety precautions in place and call light within reach. IVF running at 75ml/hr and IV in tact and patent. BS at 308 this morning and insulin mild sliding scale. will continue to monitor and assess patient.
--- NOTE | 2020-02-21 08:00 | NUR ---
RECEIVED PATIENT ASLEEP IN BED, AROUSABLE BY NAME AND TOUCH. ON 2L NC, SATURATING WNL. CASTRO CATHETER PATENT. IV ON RIGHT FA 20G FLUSHED AND PATENT. NO S/S OF DISTRESS NOTED AT THIS TIME. WILL CONTINUE TO MONITOR.
[2020-02-21 08:10] LABS: RBC,URINE 0-3 /HPF (0-3)
[2020-02-21 08:11] LABS: BACTERIA,URINE FEW /HPF (NONE SEEN); SQUAMOUS EPITHELIAL CELL,UR FEW /HPF (NONE SEEN); WBC,URINE 20-50 /HPF (0-3)
[2020-02-21 08:49] LABS: BASOPHILS # (AUTO) 0.1 K/uL (0.0-8.0); BASOPHILS % (AUTO) 0.2 % (0.0-2.0); EOSINOPHILS # (AUTO) 0.1 K/uL (0.0-0.7); EOSINOPHILS % (AUTO) 0.5 % (0.0-7.0); HEMATOCRIT 33.3 % (31.2-41.9); HEMOGLOBIN 10.8 g/dL (10.9-14.3); LYMPHOCYTES # (AUTO) 1.3 K/uL (20.0-40.0); LYMPHOCYTES % (AUTO) 5.4 % (20.5-51.5); MEAN CORPUSCULAR HEMOGLOBIN 29.9 uug (24.7-32.8); MEAN CORPUSCULAR HGB CONC 32 g/dL (32.3-35.6); MEAN CORPUSCULAR VOLUME 92.3 fL (75.5-95.3); MONOCYTES # (AUTO) 1.2 K/uL (2.0-10.0); MONOCYTES % (AUTO) 4.8 % (0.0-11.0); NEUTROPHILS # (AUTO) 21.6 K/uL (1.8-8.9); NEUTROPHILS % (AUTO) 89.1 % (38.5-71.5); PLATELET COUNT (AUTO) 309 K/uL (179-408); WHITE BLOOD COUNT (AUTO) 24.2 K/uL (3.8-11.8)
[2020-02-21 10:16] LABS: ALANINE AMINOTRANSFERASE 17 U/L (14-59); ALKALINE PHOSPHATASE 90 U/L (50-136); ASPARTATE AMINOTRANSFERASE 17 U/L (15-37); BILIRUBIN,TOTAL 0.1 mg/dL (0.2-1.0); CARBON DIOXIDE 24 mmol/L (21-32); CHLORIDE 102 mmol/L (98-107); CHOLESTEROL 112 mg/dL (<200); HDL CHOLESTEROL 54 mg/dL (40-60); MAGNESIUM 2.1 mg/dL (1.8-2.4); PHOSPHOROUS 3.9 mg/dL (2.5-4.9); POTASSIUM 4.6 mmol/L (3.5-5.1); TOTAL PROTEIN, SERUM 7.5 g/dL (6.4-8.2); TRIGLYCERIDES 68 MG/DL (30-150); UREA NITROGEN, BLOOD 42 mg/dL (7-18)
[2020-02-21 10:31] LABS: GLUCOSE 367 mg/dL (74-106)
[2020-02-21] MEDS: CEFTRIAXONE 1 G in IV DEXTROSE 5% 50 ML IV SCH (10:37)
[2020-02-21 11:40] VITALS: BP 145/84
[2020-02-21 12:37] LABS: THYROID STIMULATING HORMONE 1.438 mIU/mL (0.358-3.740)
[2020-02-21 16:00] VITALS: BP 154/88
[2020-02-21 21:00] VITALS: BP 174/78
--- NOTE | 2020-02-21 21:30 | NUR ---
orders received from Dr. hayden to place patient on tele monitor from medsurg and vasotec 2.5mg every 6 hours as needed for SBP >150
[2020-02-21] MEDS: ENALAPRILAT DIHYDRATE 1.25 MG/1 ML VIAL IV PRN (23:13)
[2020-02-22] VITALS (9 sets, daily range): BP systolic 139–188; BP diastolic 57–95
[2020-02-22] MEDS: MORPHINE SULFATE 2 MG/1 ML DISP.SYRIN IV PRN ×3 (01:41→23:52)
--- NOTE | 2020-02-22 02:42 | NUR ---
orders received from tana alves np for Vasotec 1.25mg one time now and Catapres 0.1 patch now. will administer and follow up with patient.
[2020-02-22] MEDS ORDERED: ENALAPRILAT DIHYDRATE 1.25 MG/1 ML VIAL IV ONE ×2 (02:45→05:00)
[2020-02-22] MEDS ORDERED: CLONIDINE-TTS 1 PATCH TD SCH ×2 (02:45→08:15)
[2020-02-22] MEDS ORDERED: CLONIDINE-TTS 1 PATCH TD ONE (03:01)
--- NOTE | 2020-02-22 04:50 | NUR ---
monitored patient blood pressure carefully and currently back up to 181/83 with HR of 115. orders received from dr. tana masterson to administered another dose of vasotec 1.25mg one time only give now.
[2020-02-22] MEDS: IV D5 1/2 NS 1000 ML 1,000 ML IV PRN (05:49)
[2020-02-22] MEDS: BLOOD SUGAR DIAGNOSTIC 1 EACH STRIP VI SCH ×4 (06:05→20:55)
[2020-02-22] MEDS: INSULIN REGULAR, HUMAN 300 UNIT/3 ML VIAL SQ PRN ×3 (06:07→20:57)
--- NOTE | 2020-02-22 07:00 | NUR ---
patient resting comfortably. Dr. hayden contacted regarding BP and HR. endorsed to morning shift to follow up with patient. all v/s WNL except HR and BP. no s/s of acute distress noted. safety precautions in place.
[2020-02-22 07:15] LABS: BASOPHILS # (AUTO) 0.1 K/uL (0.0-8.0); BASOPHILS % (AUTO) 0.3 % (0.0-2.0); EOSINOPHILS # (AUTO) 0.8 K/uL (0.0-0.7); EOSINOPHILS % (AUTO) 2.9 % (0.0-7.0); HEMATOCRIT 32.1 % (31.2-41.9); HEMOGLOBIN 10.4 g/dL (10.9-14.3); LYMPHOCYTES # (AUTO) 1.6 K/uL (20.0-40.0); LYMPHOCYTES % (AUTO) 6.2 % (20.5-51.5); MEAN CORPUSCULAR HEMOGLOBIN 29.9 uug (24.7-32.8); MEAN CORPUSCULAR HGB CONC 32 g/dL (32.3-35.6); MEAN CORPUSCULAR VOLUME 92.2 fL (75.5-95.3); MONOCYTES # (AUTO) 1.4 K/uL (2.0-10.0); MONOCYTES % (AUTO) 5.3 % (0.0-11.0); NEUTROPHILS # (AUTO) 22.2 K/uL (1.8-8.9); NEUTROPHILS % (AUTO) 85.3 % (38.5-71.5); PLATELET COUNT (AUTO) 263 K/uL (179-408); RED BLOOD CELL COUNT(AUTO) 3.48 MIL/uL (3.63-4.92)
[2020-02-22 07:31] LABS: ALANINE AMINOTRANSFERASE 17 U/L (14-59); ALKALINE PHOSPHATASE 79 U/L (50-136); ASPARTATE AMINOTRANSFERASE 16 U/L (15-37); BILIRUBIN,TOTAL 0.2 mg/dL (0.2-1.0); CARBON DIOXIDE 26 mmol/L (21-32); CHLORIDE 106 mmol/L (98-107); CREATININE 1.9 mg/dL (0.6-1.3); GLUCOSE 207 mg/dL (74-106); MAGNESIUM 2.1 mg/dL (1.8-2.4); PHOSPHOROUS 3.8 mg/dL (2.5-4.9); POTASSIUM 4.1 mmol/L (3.5-5.1); TOTAL PROTEIN, SERUM 7.8 g/dL (6.4-8.2); UREA NITROGEN, BLOOD 31 mg/dL (7-18)
--- NOTE | 2020-02-22 08:15 | NUR ---
RECEIVED PATIENT ASLEEP IN BED, AROUSABLE BY NAME AND TOUCH. ON 2L O2 NC, SATURATION WNL. SINUS TACH ON MONITOR. BLOOD PRESSURE IS ELEVATED AT 184/92. NOTIFIED CASTRO CATHETER PATENT. SAFETY PRECAUTIONS IN PLACE. WILL CONTINUE TO MONITOR.
[2020-02-22] MEDS: ENALAPRILAT DIHYDRATE 1.25 MG/1 ML VIAL IV PRN ×2 (08:41→20:44)
[2020-02-22] MEDS: CEFTRIAXONE 1 G in IV DEXTROSE 5% 50 ML IV SCH (09:58)
--- NOTE | 2020-02-22 10:00 | NUR ---
ADMINISTERED PRN BP MED ORDERED AT 0900. BP 156/85, HR 110 AT 1015. NO S/S OF DISTRESS OR SOB. WILL CONTINUE TO MONITOR.
[2020-02-22] MEDS ORDERED: CLONIDINE-TTS 3 PATCH TD SCH (10:15)
[2020-02-22] MEDS ORDERED: POLYMYXIN B SULFATE 500,000 UNITS, BACITRACIN 50,000 UNITS, NORMAL SALINE 20 ML MC ONE ×3 (10:45)
[2020-02-22] MEDS ORDERED: BUPIVACAINE/EPI PF 0.5% 10 ML VIAL ONE (10:49)
[2020-02-22] MEDS ORDERED: BUPIVACAINE PF 0.5% 30 ML VIAL ONE (10:50)
--- NOTE | 2020-02-22 11:05 | NUR ---
OR NURSE PICKED UP PATIENT FOR SCHEDULED SURGERY VIA GURNEY. NO S/S OF DISTRESS NOTED AT THIS TIME.
[2020-02-22] MEDS ORDERED: CLINDAMYCIN PHOSPHATE 600 MG/4 ML VIAL ONE (11:41)
[2020-02-22] MEDS ORDERED: VANCOMYCIN 1000 MG VIAL ONE (11:42)
[2020-02-22] MEDS ORDERED: FENTANYL CITRATE 100 MCG/2 ML AMPUL ONE (11:44)
[2020-02-22] MEDS ORDERED: LABETALOL HCL 100 MG/20 ML VIAL ONE (13:33)
[2020-02-22] MEDS: METOPROLOL TARTRATE 25 MG TABLET PO SCH ×2 (14:30→20:53)
[2020-02-22] MEDS: AMLODIPINE 5 MG TABLET PO SCH (14:31)
[2020-02-22] MEDS: CLINDAMYCIN PHOSPHATE IV 600 MG in IV DEXTROSE 5% 100 ML IV SCH ×2 (15:02→21:01)
[2020-02-22] MEDS: POTASSIUM CHLORIDE 20 MEQ in IV D5 1/2 NS 1000 ML 1,000 ML IV PRN (15:02)
--- NOTE | 2020-02-22 15:20 | NUR ---
PATIENT RETURNED FROM RECOVERY ROOM. INITIAL BP 196/71. REPLACED CATAPRES PATCH ORDERED. BP RECHECKED - 146/57. PATIENT RESTING IN BED, AROUSABLE BY NAME AND TOUCH. DENIES PAIN AT THIS TIME. ABDUCTOR PILLOW IN PLACE. PATIENT ABLE TO MOVE TOES ON LEFT SIDE, PEDAL PULSE PRESENT UPON PALPATION, PATIENT ABLE TO FEEL SENSATION. DRESSING DRY AND INTACT, NO S/S OF BLEEDING NOTED. WILL CONTINUE TO MONITOR.
[2020-02-22] MEDS ORDERED: METOPROLOL TARTRATE 25 MG TABLET PO SCH (17:00)
[2020-02-22] MEDS ORDERED: DEXTROSE 50% 50 ML DISP.SYRIN IV PRN (17:00)
[2020-02-22] MEDS: HYDROCODONE/APAP 10-325 MG TABLET PO PRN (20:46)
[2020-02-22] MEDS ORDERED: DEXAMETHASONE SOD PHOSPHATE 4 MG INJ IV ONE (22:29)
[2020-02-22] MEDS ORDERED: ONDANSETRON 4 MG/2 ML VIAL IV ONE (22:29)
[2020-02-22] MEDS ORDERED: KETOROLAC TROMETHAMINE 30 MG INJ IM ONE (22:29)
[2020-02-22] MEDS ORDERED: PROPOFOL 200 MG/20 ML BOTTLE IV ONE (22:29)
[2020-02-22] MEDS ORDERED: SEVOFLURANE 250 ML BOTTLE IH ONE (22:29)
[2020-02-22] MEDS ORDERED: LIDOCAINE-MPF 2% 5 ML VIAL MC ONE (22:29)
[2020-02-23 04:16] VITALS: BP 122/50
[2020-02-23] MEDS: CLINDAMYCIN PHOSPHATE IV 600 MG in IV DEXTROSE 5% 100 ML IV SCH (05:37)
[2020-02-23] MEDS: POTASSIUM CHLORIDE 20 MEQ in IV D5 1/2 NS 1000 ML 1,000 ML IV PRN ×2 (05:37→23:58)
[2020-02-23 05:55] LABS: BASOPHILS % (AUTO) 0.2 % (0.0-2.0); EOSINOPHILS % (AUTO) 0.1 % (0.0-7.0); HEMATOCRIT 25.2 % (31.2-41.9); HEMOGLOBIN 8.3 g/dL (10.9-14.3); LYMPHOCYTES # (AUTO) 1.3 K/uL (20.0-40.0); LYMPHOCYTES % (AUTO) 6.2 % (20.5-51.5); MEAN CORPUSCULAR HEMOGLOBIN 30.3 uug (24.7-32.8); MEAN CORPUSCULAR HGB CONC 33 g/dL (32.3-35.6); MEAN CORPUSCULAR VOLUME 92.3 fL (75.5-95.3); MONOCYTES # (AUTO) 1.6 K/uL (2.0-10.0); MONOCYTES % (AUTO) 7.7 % (0.0-11.0); NEUTROPHILS # (AUTO) 18.2 K/uL (1.8-8.9); NEUTROPHILS % (AUTO) 85.8 % (38.5-71.5); PLATELET COUNT (AUTO) 205 K/uL (179-408); RED BLOOD CELL COUNT(AUTO) 2.73 MIL/uL (3.63-4.92); WHITE BLOOD COUNT (AUTO) 21.2 K/uL (3.8-11.8)
[2020-02-23] MEDS: BLOOD SUGAR DIAGNOSTIC 1 EACH STRIP VI SCH ×4 (06:23→21:08)
[2020-02-23 06:25] LABS: ALANINE AMINOTRANSFERASE 14 U/L (14-59); ALKALINE PHOSPHATASE 64 U/L (50-136); ASPARTATE AMINOTRANSFERASE 12 U/L (15-37); BILIRUBIN,TOTAL 0.1 mg/dL (0.2-1.0); CARBON DIOXIDE 25 mmol/L (21-32); CHLORIDE 106 mmol/L (98-107); GLUCOSE 277 mg/dL (74-106); PHOSPHOROUS 3.8 mg/dL (2.5-4.9); POTASSIUM 4.2 mmol/L (3.5-5.1); TOTAL PROTEIN, SERUM 6.3 g/dL (6.4-8.2); UREA NITROGEN, BLOOD 35 mg/dL (7-18)
--- NOTE | 2020-02-23 07:20 | NUR ---
pt rested well in between care; pt more alert at this time but very forgetful. c/o pain and addressed accordingly; see EMAR; needs attended; safety maintained; continue to monitor; PT today.
[2020-02-23 07:26] LABS: *CREATININE,URINE 68.2 mg/dL (30-125)
--- NOTE | 2020-02-23 08:00 | NUR ---
Pt very forgetful. Aspiration and THR precaution implemented. Dressing intact on left hip. Applied ICE on left hip for pain management. Pt is in no acute distress. Call light is within reach.
[2020-02-23] MEDS: METOPROLOL TARTRATE 25 MG TABLET PO SCH (08:06)
[2020-02-23] MEDS: AMLODIPINE 5 MG TABLET PO SCH (08:07)
[2020-02-23] MEDS: INSULIN REGULAR, HUMAN 300 UNIT/3 ML VIAL SQ PRN ×4 (08:09→21:15)
[2020-02-23] MEDS: MORPHINE SULFATE 2 MG/1 ML DISP.SYRIN IV PRN ×2 (08:16→10:21)
[2020-02-23 09:01] VITALS: BP 155/66
[2020-02-23] MEDS: METOPROLOL TARTRATE 25 MG TABLET PO ONE ×2 (10:10→10:33)
[2020-02-23 11:30] VITALS: BP 149/57
[2020-02-23 12:51] LABS: IRON, SERUM 19 ug/dL (50-175)
[2020-02-23] MEDS ORDERED: ENALAPRILAT DIHYDRATE 2.5 MG/2 ML VIAL IV PRN (15:30)
[2020-02-23 15:55] VITALS: BP 158/58
[2020-02-23] MEDS: hydrALAZINE HCL 25 MG TABLET PO PRN (16:39)
[2020-02-23] MEDS ORDERED: BISACODYL 10 MG SUPP.RECT RC ONE (17:30)
[2020-02-23] MEDS ORDERED: BISACODYL 10 MG SUPP.RECT RC PRN (17:45)
--- NOTE | 2020-02-23 18:00 | NUR ---
Pt is in no acute distress. NO fall noted this shift. SNR @ 70s currently on tele. Call light is within reach.
[2020-02-23 18:30] VITALS: BP 145/57
[2020-02-23 20:52] VITALS: BP 146/53
[2020-02-23] MEDS: DOCUSATE SODIUM 100 MG CAPSULE PO SCH (21:09)
[2020-02-23] MEDS: METOPROLOL TARTRATE 50 MG TABLET PO SCH (21:16)
--- NOTE | 2020-02-23 21:36 | NUR ---
Received pt awake and in bed. On 2L NC. Denies any SOB or chest pain at this time. Denies pain. Will continue to monitor.
[2020-02-24 00:53] VITALS: BP 151/51
--- NOTE | 2020-02-24 00:58 | NUR ---
hands off report report received from Anne tiwari. Pt stable and in no acute distress. Safety and comfort provided. Will continue to monitor.
[2020-02-24 04:00] VITALS: BP 166/65
[2020-02-24] MEDS: hydrALAZINE HCL 25 MG TABLET PO PRN ×3 (05:30→20:07)
--- NOTE | 2020-02-24 06:29 | NUR ---
HYDRALAZINE PRN GIVEN FOR BP ABOVE 160. PT IN NO ACUTE DISTRESS. WILL CONTINUE TO MONITOR. CHECKED PT IF SHE WET HER CHUCKS AND CHECK IF SHE HAD BOWEL MOVEMENT. NO BOWEL MOVEMENT AND DRY. CASTRO DRAINING WELL. NEED STOOL SPECIMEN FOR THE PT AND WILL ENDORSE ABOUT IT. PT MAD AND REFUSED NOT TO BE REPOSITIONED.
[2020-02-24 06:38] LABS: BASOPHILS # (AUTO) 0.1 K/uL (0.0-8.0); BASOPHILS % (AUTO) 0.4 % (0.0-2.0); EOSINOPHILS # (AUTO) 0.9 K/uL (0.0-0.7); EOSINOPHILS % (AUTO) 5.3 % (0.0-7.0); HEMATOCRIT 22.7 % (31.2-41.9); HEMOGLOBIN 7.5 g/dL (10.9-14.3); LYMPHOCYTES % (AUTO) 11.3 % (20.5-51.5); MEAN CORPUSCULAR HEMOGLOBIN 30.7 uug (24.7-32.8); MEAN CORPUSCULAR HGB CONC 33 g/dL (32.3-35.6); MEAN CORPUSCULAR VOLUME 92.6 fL (75.5-95.3); MONOCYTES # (AUTO) 1.5 K/uL (2.0-10.0); MONOCYTES % (AUTO) 8.2 % (0.0-11.0); NEUTROPHILS # (AUTO) 13.3 K/uL (1.8-8.9); NEUTROPHILS % (AUTO) 74.8 % (38.5-71.5); PLATELET COUNT (AUTO) 190 K/uL (179-408); WHITE BLOOD COUNT (AUTO) 17.8 K/uL (3.8-11.8)
[2020-02-24] MEDS: BLOOD SUGAR DIAGNOSTIC 1 EACH STRIP VI SCH ×4 (06:42→20:15)
[2020-02-24 06:56] LABS: RED BLOOD CELL COUNT(AUTO) 2.45 MIL/uL (3.63-4.92)
[2020-02-24 06:59] VITALS: BP 159/63
[2020-02-24 07:00] LABS: IRON, SERUM 15 ug/dL (50-175)
[2020-02-24 07:21] LABS: ALANINE AMINOTRANSFERASE 16 U/L (14-59); ALKALINE PHOSPHATASE 60 U/L (50-136); ASPARTATE AMINOTRANSFERASE 13 U/L (15-37); BILIRUBIN,TOTAL 0.2 mg/dL (0.2-1.0); CARBON DIOXIDE 28 mmol/L (21-32); CHLORIDE 103 mmol/L (98-107); CREATININE 1.6 mg/dL (0.6-1.3); FERRITIN 190 ng/mL (8-252); GLUCOSE 247 mg/dL (74-106); PHOSPHOROUS 2.8 mg/dL (2.5-4.9); POTASSIUM 3.6 mmol/L (3.5-5.1); TOTAL PROTEIN, SERUM 6.3 g/dL (6.4-8.2); UREA NITROGEN, BLOOD 37 mg/dL (7-18)
--- NOTE | 2020-02-24 08:45 | NUR ---
PATIENT IN BED ALERT TO SELF ONLY WITH CONFUSSION AND DISORIENTATION PULLED OUT HER HEPLOCK UNABLE TO RELATE WHY NO BLEEDING GAUZE APPLIED WILL REINSERT KIKI.LEFT HIP SURGICAL INCISION WITH DRESSING DRY AND INTACT ALL NEEDS ANTICIPATED AND SATISFIED MAX ASSIST FOR ALL ADL O2 IN PROGRESS WITH NO SOB CASTRO TO GRAVITY DRAINGE NO HEMATURIA MADE COMFORTABLE WILL CONTINUE TO OBSERVE
[2020-02-24] MEDS: HYDROCODONE/APAP 10-325 MG TABLET PO PRN (09:05)
[2020-02-24] MEDS: AMLODIPINE 10 MG TABLET PO SCH (09:07)
[2020-02-24] MEDS: METOPROLOL TARTRATE 50 MG TABLET PO SCH ×2 (09:07→20:08)
--- NOTE | 2020-02-24 10:09 | NUR ---
PATIENT SEEN BY THE PHYSICAL THERAPY PER THE THERAPIST PATIENT UNABLE TO WALK ONLY SAT AT EDGE OF THE BED AND BACK TO BED PATIENT IS ALERT TO SELF ONLY WITH CONFUSSION ALL NEEDS ANTICIPATED AND SATISFIED.
--- NOTE | 2020-02-24 11:29 | NUR ---
PATIENT SEEN AND EXAMINED BY DR MEG GHOTRA WITH ORDER AND HE SPOKE WITH THE PATIENTS DAUGHTER AT LENGTH RE PLAN OF CARE AND SHE EXPRESSED UNDERSTANDING.
[2020-02-24] MEDS: INSULIN REGULAR, HUMAN 300 UNIT/3 ML VIAL SQ PRN ×3 (11:54→20:20)
[2020-02-24 11:58] VITALS: BP 139/61
[2020-02-24 13:15] LABS: *BILIRUBIN,URIN NEGATIVE (NEGATIVE); *CLARITY,URINE CLEAR (CLEAR); *COLOR,URINE YELLOW (YELLOW); *KETONES,URINE NEGATIVE (NEGATIVE); *UROBILINOGEN,URINE 0.2 E.U./dl (NORMAL); LEUKOCYTE ESTERASE ,URINE TRACE (NEGATIVE); NITRITE, URINE NEGATIVE (NEGATIVE); UGLUCOSE TRACE (NEGATIVE)
[2020-02-24 13:16] LABS: *BLOOD, URINE TRACE (NEGATIVE)
[2020-02-24] MEDS: SOD FERRIC GLUC COMPLX/SUCROSE 125 MG in IV NORMAL SALINE 100 ML IV SCH (14:37)
[2020-02-24 15:57] LABS: BACTERIA,URINE FEW /HPF (NONE SEEN); COARSE GRANULAR CASTS,URINE 0-2 /LPF; RBC,URINE 0-3 /HPF (0-3); SQUAMOUS EPITHELIAL CELL,UR FEW /HPF (NONE SEEN)
[2020-02-24 16:11] VITALS: BP 155/66
--- NOTE | 2020-02-24 17:54 | NUR ---
HEPLOCK REAPPLIED TO HER LEFT HAND AFTER 2 ATTEMPTS WRAPPED WITH KIRLIX FERRLICIT GIVEN IVPB ORDERED ABD PILLOW IN PLACE ALERT BUT WITH DISORIENTATION ABLE TO MAKE SIMPLE NEEDS KNOWN BUT REQUIRES MAX ASSIST FOR ALL ADL.MADE COMFORTABLE WILL CONTINUE TO OBSERVE.
[2020-02-24] MEDS: POTASSIUM CHLORIDE 20 MEQ in IV D5 1/2 NS 1000 ML 1,000 ML IV PRN (18:00)
[2020-02-24] MEDS: DOCUSATE SODIUM 100 MG CAPSULE PO SCH (20:07)
[2020-02-24 20:30] VITALS: BP 177/72
[2020-02-25] VITALS (7 sets, daily range): BP systolic 116–182; BP diastolic 45–69
[2020-02-25 06:34] LABS: *OCCULT BLOOD STOOL NEGATIVE (NEGATIVE)
[2020-02-25] MEDS: POTASSIUM CHLORIDE 20 MEQ in IV D5 1/2 NS 1000 ML 1,000 ML IV PRN (06:40)
[2020-02-25] MEDS: BLOOD SUGAR DIAGNOSTIC 1 EACH STRIP VI SCH ×4 (06:45→20:51)
[2020-02-25 07:06] LABS: BASOPHILS # (AUTO) 0.1 K/uL (0.0-8.0); BASOPHILS % (AUTO) 0.5 % (0.0-2.0); EOSINOPHILS # (AUTO) 0.9 K/uL (0.0-0.7); EOSINOPHILS % (AUTO) 6.4 % (0.0-7.0); HEMATOCRIT 24.3 % (31.2-41.9); HEMOGLOBIN 8.2 g/dL (10.9-14.3); LYMPHOCYTES # (AUTO) 1.7 K/uL (20.0-40.0); MEAN CORPUSCULAR HEMOGLOBIN 31.2 uug (24.7-32.8); MEAN CORPUSCULAR HGB CONC 34 g/dL (32.3-35.6); MEAN CORPUSCULAR VOLUME 92.6 fL (75.5-95.3); MONOCYTES # (AUTO) 1.3 K/uL (2.0-10.0); NEUTROPHILS # (AUTO) 10.4 K/uL (1.8-8.9); NEUTROPHILS % (AUTO) 72.1 % (38.5-71.5); PLATELET COUNT (AUTO) 210 K/uL (179-408); RED BLOOD CELL COUNT(AUTO) 2.62 MIL/uL (3.63-4.92); WHITE BLOOD COUNT (AUTO) 14.4 K/uL (3.8-11.8)
[2020-02-25 07:18] LABS: CARBON DIOXIDE 26 mmol/L (21-32); CHLORIDE 104 mmol/L (98-107); CREATININE 1.6 mg/dL (0.6-1.3); GLUCOSE 211 mg/dL (74-106); PHOSPHOROUS 3.1 mg/dL (2.5-4.9); POTASSIUM 3.6 mmol/L (3.5-5.1); UREA NITROGEN, BLOOD 34 mg/dL (7-18)
[2020-02-25] MEDS: AMLODIPINE 10 MG TABLET PO SCH (08:05)
[2020-02-25] MEDS: METOPROLOL TARTRATE 50 MG TABLET PO SCH ×2 (08:05→20:44)
[2020-02-25] MEDS: INSULIN REGULAR, HUMAN 300 UNIT/3 ML VIAL SQ PRN ×4 (08:09→20:53)
[2020-02-25] MEDS: HYDROCODONE/APAP 10-325 MG TABLET PO PRN ×2 (09:14→14:14)
[2020-02-25] MEDS: SOD FERRIC GLUC COMPLX/SUCROSE 125 MG in IV NORMAL SALINE 100 ML IV SCH (14:23)
[2020-02-25] MEDS ORDERED: AMLO10TA59 PO (14:24)
[2020-02-25] MEDS ORDERED: HYDR-894 PO (14:24)
--- NOTE | 2020-02-25 14:29 | NUR ---
Patient saturating 95% on room air.
[2020-02-25] MEDS ORDERED: INFLUENZA VACCINE 2020-2021 0.5 ML DISP.SYRIN IM ONE ×2 (16:30→18:15)
--- NOTE | 2020-02-25 16:30 | NUR ---
PER PATIENT'S DAUGHTER, ELISHA, REQUESTING FLU VACCINATION FOR PATIENT.
--- NOTE | 2020-02-25 17:10 | NUR ---
Received patient awake in bed. IV in left hand flushing patent, and intact. Patient AO x 1-2. No acute distress at the moment. No complaints of pain. Safety precautions in place. Call light within reach. Will continue to monitor. Addendum: 02/25/20 at 1851 by BESSIE MCCARTY RN NOTE FOR 0745.
--- NOTE | 2020-02-25 18:59 | NUR ---
CASTRO CATHETER D/C'ed PER MEG GHOTRA M.D. FLU VACCINATION GIVEN. TOLERATED MEDICATIONS. PATIENT STABLE THROUGHOUT SHIFT. PAIN MANAGED. MADE COMFORTABLE. SAFETY PRECAUTIONS IN PLACE. WILL ENDORSE TO ONCOMING SHIFT.
[2020-02-25] MEDS: hydrALAZINE HCL 25 MG TABLET PO PRN (19:15)
[2020-02-25] MEDS: DOCUSATE SODIUM 100 MG CAPSULE PO SCH (20:56)
--- NOTE | 2020-02-25 22:30 | NUR ---
PATIENT WAS PICKED UP BY AMBULANCE, DISCHARGE HOME, PATIENT IN FAIR BUT STABLE CONDITION. PATIENT DON'T HAVE BELONGINGS, DAUGHTER TOOK IT HOME. DAUGHTER WAS CALLED VIA PHONE TO NOTIFY ABOUT THE AMBULANCE IS ON THE WAY.
== END 2020-02-25 22:30 | disposition home health service (06) | DRG 480 ==
LOC: ER 22:34 → MEDSURG3 02-21 03:14 → TELE3 02-21 23:00
PROVIDERS: ADMIT Internal Medicine; ATTEND Nurse Practitioner Acute Care
PROC: 0QS706Z Reposition Left Upper Femur with Intramedullary Internal Fixation Device, Open Approach (ICD-10-PCS; principal; 2020-02-22)
DX: M80.852A Other osteoporosis with current pathological fracture, left femur, initial encounter for fracture (principal); A41.9 Sepsis, unspecified organism; G92 Toxic encephalopathy; E43 Unspecified severe protein-calorie malnutrition; N17.0 Acute kidney failure with tubular necrosis; N39.0 Urinary tract infection, site not specified; I50.32 Chronic diastolic (congestive) heart failure; D68.69 Other thrombophilia; I13.0 Hypertensive heart and chronic kidney disease with heart failure and stage 1 through stage 4 chronic kidney disease, or unspecified chronic kidney disease; E11.65 Type 2 diabetes mellitus with hyperglycemia; E11.22 Type 2 diabetes mellitus with diabetic chronic kidney disease; E03.9 Hypothyroidism, unspecified; E66.9 Obesity, unspecified; E78.5 Hyperlipidemia, unspecified; F03.90 Unspecified dementia, unspecified severity, without behavioral disturbance, psychotic disturbance, mood disturbance, and anxiety; N18.9 Chronic kidney disease, unspecified; Z79.4 Long term (current) use of insulin; Z88.0 Allergy status to penicillin; Z88.2 Allergy status to sulfonamides; M48.02 Spinal stenosis, cervical region; M19.90 Unspecified osteoarthritis, unspecified site; D64.9 Anemia, unspecified; E61.1 Iron deficiency; Z68.27 Body mass index [BMI] 27.0-27.9, adult; R09.02 Hypoxemia; W19.XXXA Unspecified fall, initial encounter; Y93.9 Activity, unspecified; Y92.009 Unspecified place in unspecified non-institutional (private) residence as the place of occurrence of the external cause
CPT/HCPCS: 36415; 70030-TC; 70450; 71045; 72125; 72170; 73503; 73551; 83550; 83605; 83735; 84100; 84156; 84300; 84443; 85025; 85730; 86850; 86900; 86901; 87040; 87086; 90686; 93005; 93307; A4649; A4663; G0378; J0696; J1100; J1815; J1885; J2270; J2405; J2916; J3010; J3370; J3480; J3490; J7050; J7060; J7120